=== PATIENT | male | born 1985 | race Caucasian/White ===

== ENCOUNTER 2018-08-20 19:13 | Emergency (ER) | payer OTHER, MEDICAID, SELFPAY ==
[2018-08-20 19:18] VITALS: BP 138/78; PULSE 88; RESP 17; TEMP 36.4; O2SAT 97; BMI 41.2
--- NOTE | 2018-08-20 20:17 | DI.CT.S_ITS ---
PROCEDURE: CT ABDOMEN PELVIS W CON INDICATIONS: LUQ pain getting worse TECHNIQUE: After the administration of intravenous contrast, 5 mm thick sections acquired from the diaphragm to the symphysis. 5 mm coronal and sagittal reformats were acquired. For radiation dose reduction, the following was used: automated exposure control, adjustment of mA and/or kV according to patient size. COMPARISON: None. FINDINGS: Image quality: Excellent. ABDOMEN: Lung bases: Lung bases are clear. Heart size is normal. Solid organs: Liver is normal in size and enhancement. The liver is diffusely prominently fatty infiltrated with several small areas of focal sparing from otherwise diffuse fatty infiltration. Gallbladder is partially contracted. Biliary system is non dilated. Pancreas enhances normally. Spleen is enlarged in size at 14.1 cm craniocaudad and normal in enhancement. No adrenal nodules. Kidneys demonstrate normal size and enhancement, without hydronephrosis. Peritoneum and bowel: Bowel loops demonstrate normal wall thickness and caliber. No free fluid or air. Nodes and vessels: No retroperitoneal or mesenteric adenopathy by size criteria. Aorta and inferior vena cava are normal in size. Miscellaneous: No ventral hernias. PELVIS: Genitourinary: Bladder wall thickness is normal. Miscellaneous: No inguinal hernias or adenopathy. Bones: No suspicious bony lesions. No vertebral body compression fractures. IMPRESSION: Prominent fatty infiltration throughout the liver, mildly heterogeneous. Splenomegaly. No acute disease. No ascites or varices are yet found. Dictated by: Dhruv Trejo M.D. on 08/20/2018 at 21:45 Approved by: Dhruv Trejo M.D. on 08/20/2018 at 21:47
[2018-08-20 20:36] LABS: Add Manual Diff / Slide Review NO; Basophils Absolute Auto 100 /uL (0-100); Basophils Percent Auto 0.7 % (0-2); Eosinophils Absolute Auto 200 /uL (0-450); Eosinophils Percent Auto 2.2 % (2-4); Hematocrit 46.3 % (41-53); Hemoglobin 15.9 g/dL (13.5-17.5); Lymphocytes Absolute Auto 3100 /uL (1100-4500); Lymphocytes Percent Auto 36.5 % (25-40); Mean Corpuscular HGB Conc 34.4 % (30-36); Mean Corpuscular Hemoglobin 29.1 PG (26-34); Mean Corpuscular Volume 84.4 fL (80-100); Monocytes Absolute Auto 500 /uL (0-900); Monocytes Percent Auto 6.4 % (3-14); Neutrophils Absolute Auto 4600 /uL (1500-7000); Neutrophils Percent Auto 54.2 % (50-75); Platelet Count 214 X10^3/uL (150-400); Red Blood Cell Count 5.49 X10^6/uL (4.5-5.9); White Blood Cell Count 8.5 X10^3/uL (4.5-11.0)
[2018-08-20 20:49] LABS: Alanine Aminotransferase 58 IU/L (21-72); Albumin 4.3 g/dL (3.5-5.0); Albumin Globulin Ratio 1.4 (1.0-2.8); Alkaline Phosphatase 60 U/L (38-126); Aspartate Aminotransferase 32 IU/L (17-59); BUN Creatinine Ratio 18.2 (6-22); Bilirubin Total 0.5 mg/dL (0.2-1.3); Blood Urea Nitrogen 20 mg/dL (9-20); Carbon Dioxide 25 mmol/L (22-32); Chloride 104 mmol/L (98-107); Estimated Glomerular Filt Rate > 60.0 mL/min (>60); Glucose 90 mg/dL (70-100); HEMOLYSIS 36 (0-50); Lipase 58 U/L (23-300); Potassium 4.1 mmol/L (3.4-5.1); Sodium 141 mmol/L (137-145); Total Protein 7.3 g/dL (6.3-8.2)
--- NOTE | 2018-08-20 21:53 | ED_ITS ---
HPI - Abdominal Pain General Chief Complaint: Abdominal Pain Stated Complaint: upper left quadrant abdominal pain Time Seen by Provider: 08/20/18 20:01 Source: patient Mode of arrival: ambulatory Limitations: no limitations History of Present Illness HPI narrative: patient is a 32-year-old male who presents with left upper quadrant pain it has been ongoing for the last week and a half. It waxes and wanes. No nausea or vomiting or fever. No diarrhea. It does stay primarily in left upper quadrant is not affected by food. Nonradiating. MD complaint: abdominal pain Location: LUQ Severity: mild Quality: cramping Radiation: none Migration to: no migration Relieving factors: nothing Exacerbating factors: nothing Associated symptoms: denies other symptoms Related Data Previous Rx's Medication Instructions Recorded clotrimazole 1 appl TOPICAL BID PRN #45 gm 09/04/17 Allergies Allergy/AdvReac Type Severity Reaction Status Date / Time No Known Drug Allergies Allergy Verified 08/20/18 19:18 Review of Systems Review of Systems GENERAL: Denies chills, fatigue, malaise, fever, sweats, travel HEENT: Denies sinus pain, ear pain, sore throat, difficulty swallowing, neck pain RESPIRATORY: Denies dyspnea, cough, wheezing, hemoptysis, sputum. CARDIOVASCULAR: Denies chest pain, palpitations, orthopnea, edema GASTROINTESTINAL: see HPI : Denies dysuria, frequency, incontinence, hematuria, urinary retention, flank pain. MUSCULOSKELETAL: Denies weakness, joint pain, or bony pain SKIN: No rash, no erythema, no pruritus NEUROLOGIC: Denies weakness, dizziness, headache, numbness, change in speech, confusion PSYCHIATRIC: No concerning psychosocial issues. 12 point review of systems is negative except for those stated above and HPI PFSH Social History Smoking Status: Current some day smoker Social History Smoking Status: Current some day smoker Exam Initial Vital Signs Initial Vital Signs: Vital Signs Temperature 97.5 F L 08/20/18 19:18 Pulse Rate 88 08/20/18 19:18 Respiratory Rate 17 08/20/18 19:18 Blood Pressure 138/78 08/20/18 19:18 Pulse Oximetry 97 08/20/18 19:18 GENERAL: Well-appearing, well-nourished and in no acute distress. HEENT: Head atraumatic,EOMI, pupils reactive, face symmetric, moist mucous membranes CARDIOVASCULAR: Regular rate and rhythm without murmurs, rubs or gallops. RESPIRATORY: Breath sounds equal bilaterally, no wheezes rales or rhonchi. ABDOMEN: Soft, overweight, mild left upper quadrant pain without guarding or rebound, no lower abdominal pain no right upper quadrant pain : No CVA tenderness EXTREMITIES: Normal range of motion, no clubbing or edema. Neurovascularly intact NEUROLOGICAL: Alert and oriented x4.Normal gait and speech. SKIN: Warm, dry, no laceration, no petechiae, no rashes or lesions. Course Orders Ordered: ED Orders 08/20/18 20:17 CT abdomen pelvis w con Stat 08/20/18 20:30 Complete Blood Count AUTO DIFF Stat Comprehensive Metabolic Panel Stat Lipase Stat Vital Signs - 8 hr 08/20/18 19:18 08/20/18 21:56 Temperature 97.5 F L Pulse Rate 88 72 Respiratory Rate 17 17 Blood Pressure 138/78 Blood Pressure [Left Arm] 104/51 L Pulse Oximetry 97 95 MDM - Abdominal Pain Lab Data Attestation: I reviewed the patient's lab results. Result diagrams: 08/20/18 20:30 08/20/18 20:30 Lab Results 08/20/18 08/20/18 Range/Units 20:30 20:30 WBC 8.5 (4.5-11.0) X10^3/uL RBC 5.49 (4.5-5.9) X10^6/uL Hgb 15.9 (13.5-17.5) g/dL Hct 46.3 (41-53) % MCV 84.4 (80-100) fL MCH 29.1 (26-34) PG MCHC 34.4 (30-36) % RDW 13.0 (11.6-14.8) % Plt Count 214 (150-400) X10^3/uL Neut % (Auto) 54.2 (50-75) % Lymph % (Auto) 36.5 (25-40) % [place] % (Auto) 6.4 (3-14) % Eos % (Auto) 2.2 (2-4) % Baso % (Auto) 0.7 (0-2) % Neut # (Auto) 4600 (1693-9219) /uL Lymph # (Auto) 3100 (4914-0012) /uL [place] # (Auto) 500 (0-900) /uL Eos # (Auto) 200 (0-450) /uL Baso # (Auto) 100 (0-100) /uL Sodium 141 (137-145) mmol/L Potassium 4.1 (3.4-5.1) mmol/L Chloride 104 (98-107) mmol/L Carbon Dioxide 25 (22-32) mmol/L BUN 20 (9-20) mg/dL Creatinine 1.10 (0.66-1.25) mg/dL Estimated GFR > 60.0 (>60) mL/min BUN/Creatinine Ratio 18.2 (6-22) Glucose 90 (70-100) mg/dL Calcium 9.0 (8.4-10.2) mg/dL Total Bilirubin 0.5 (0.2-1.3) mg/dL AST 32 (17-59) IU/L ALT 58 (21-72) IU/L Alkaline Phosphatase 60 (38-126) U/L Total Protein 7.3 (6.3-8.2) g/dL Albumin 4.3 (3.5-5.0) g/dL Globulin 3.0 (1.7-4.1) g/dL Albumin/Globulin Ratio 1.4 (1.0-2.8) Lipase 58 (23-300) U/L Imaging Data CT scan - abdomen: Radiologist's impression: PROCEDURE: CT ABDOMEN PELVIS W CON INDICATIONS: LUQ pain getting worse TECHNIQUE: After the administration of intravenous contrast, 5 mm thick sections acquired from the diaphragm to the symphysis. 5 mm coronal and sagittal reformats were acquired. For radiation dose reduction, the following was used: automated exposure control, adjustment of mA and/or kV according to patient size. COMPARISON: None. FINDINGS: Image quality: Excellent. ABDOMEN: Lung bases: Lung bases are clear. Heart size is normal. Solid organs: Liver is normal in size and enhancement. The liver is diffusely prominently fatty infiltrated with several small areas of focal sparing from otherwise diffuse fatty infiltration. Gallbladder is partially contracted. Biliary system is non dilated. Pancreas enhances normally. Spleen is enlarged in size at 14.1 cm craniocaudad and normal in enhancement. No adrenal nodules. Kidneys demonstrate normal size and enhancement, without hydronephrosis. Peritoneum and bowel: Bowel loops demonstrate normal wall thickness and caliber. No free fluid or air. Nodes and vessels: No retroperitoneal or mesenteric adenopathy by size criteria. Aorta and inferior vena cava are normal in size. Miscellaneous: No ventral hernias. PELVIS: Genitourinary: Bladder wall thickness is normal. Miscellaneous: No inguinal hernias or adenopathy. Bones: No suspicious bony lesions. No vertebral body compression fractures. IMPRESSION: Prominent fatty infiltration throughout the liver, mildly hete rogeneous. Splenomegaly. No acute disease. No ascites or varices are yet found. Dictated by: Dhruv Trejo M.D. on 08/20/2018 at 21:45 MDM Narrative Medical decision making narrative: the patient has chronic ongoing left upper quadrant pain. May be due to gastric ulcers although symptoms are not related to food. At this time no cause of left upper quadrant pain recommend outpatient follow-up. Discharge Plan Departure Patient Disposition: Home Clinical Impression: Abdominal pain Qualifiers: Abdominal location: left upper quadrant Qualified Code(s): R10.12 - Left upper quadrant pain Discharge Date/Time: 08/20/18 22:14 Interventions: ED Discharge Assessment Last Done: 08/20/18 22:14 Activity Restrictions/Additional Instructions: *You have been diagnosed with Left upper quadrant pain *What to do: blood work and CT scan are reassuring. May have a stomach ulcer. You can try taking [id number] omeprazole 20 mg once a day for 2 weeks to see if there is any improvement *Continue to take medications as directed *Follow up with your primary care provider in 2-3 days *Return to ER if you should have increasing pain persistent vomiting or any other new or concerningany new, worsening or concerning symptoms Prescriptions: No Action clotrimazole 1 % cream 1 appl Topical BID PRNQty: 45 RF: 0 Referrals: Brown Watkins DO [Primary Care Provider] -
[2018-08-20 21:56] VITALS: BP 104/51; PULSE 72; RESP 17; O2SAT 95
== END 2018-08-20 22:14 | disposition home or self-care (01) ==
PROVIDERS: Emergency Provider Emergency Medicine; Family Provider Emergency Medicine; PCP Emergency Medicine
DX: R10.9 Unspecified abdominal pain (principal)
CPT/HCPCS: 36415; 36591; 74177; 80053; 83690; 85025; 99282; 99285

== ENCOUNTER 2018-12-20 18:30 | Emergency (ER) | payer OTHER, SELFPAY ==
[2018-12-20 18:45] VITALS: BMI 28.1
[2018-12-20 19:15] VITALS: BP 123/80; PULSE 76; RESP 16; TEMP 36.7; O2SAT 95; BMI 28.1
--- NOTE | 2018-12-20 20:00 | ED_ITS ---
HPI - Extremity Injury (Lower) <Jessica Feliz PA-C - Last Filed: 12/20/18 21:03> General Chief Complaint: Extremity Injury, Lower Stated Complaint: thinks chemical exposure to feet at work Time Seen by Provider: 12/20/18 19:33 Source: patient Mode of arrival: ambulatory Limitations: no limitations History of Present Illness HPI Narrative: This 33-year-old male comes to ED secondary to concern for chemical exposure or infection on his feet. He states that Friday, he had some tar and tack from work go through his shoes on to his socks and had some blistering. He states that he also thought he had athlete's foot because he had some flaking and redness between his toes. He states he had burning pain on the bottom of his feet which is better after using antifungal spray for 5 days, however he has increased redness and pain on the top of his right foot mainly 2nd toe. He denies any drainage, fever, states this area gusman. He denies any other new complaints today. Related Data Previous Rx's Medication Instructions Recorded clotrimazole 1 appl TOPICAL BID PRN #45 gm 09/04/17 cephalexin 500 mg PO Q6H 7 Days #28 cap 12/20/18 Allergies Allergy/AdvReac Type Severity Reaction Status Date / Time No Known Drug Allergies Allergy Verified 12/20/18 18:45 Review of Systems <Jessica Feliz PA-C - Last Filed: 12/20/18 21:03> Review of Systems ROS Unobtainable: All systems reviewed & are unremarkable except as noted in HPI and below PFSH <Jessica Feliz PA-C - Last Filed: 12/20/18 21:03> Medical History (Updated 12/20/18 @ 20:33 by Dawna Luis RN) History of traumatic brain injury (Resolved) Surgical History (Updated 12/20/18 @ 19:55 by Jessica Feliz PA-C) Status post brain surgery (Resolved) Social History Smoking Status: Current some day smoker Social History Smoking Status: Current some day smoker Exam <Jessica Feliz PA-C - Last Filed: 12/20/18 21:03> Narrative Exam Narrative: GENERAL APPEARANCE: Patient sitting comfortably, in no distress. LUNGS: Clear to auscultation bilaterally. HEART: Rate and rhythm regular without murmur, normal S1 and S2, no S3 or S4. EXTREMITIES: No cyanosis, no edema DERMATOLOGIC: No exanthem on the dorsal feet. On the right foot there is some interdigital flaking and small cracks. There is erythema on the right 2nd toe medial dorsal surface, trace edema. There are no vesicles or pustules Initial Vital Signs Initial Vital Signs: Vital Signs Temperature 98.0 F 12/20/18 19:15 Pulse Rate 76 12/20/18 19:15 Respiratory Rate 16 12/20/18 19:15 Blood Pressure 123/80 12/20/18 19:15 Pulse Oximetry 95 12/20/18 19:15 <DO Jony Santos Last Filed: 12/20/18 21:15> Initial Vital Signs Initial Vital Signs: Vital Signs Temperature 98.0 F 12/20/18 19:15 Pulse Rate 76 12/20/18 19:15 Respiratory Rate 16 12/20/18 19:15 Blood Pressure 123/80 12/20/18 19:15 Pulse Oximetry 95 12/20/18 19:15 Course <JUSTICE Bowman Last Filed: 12/20/18 21:03> Additional Information: The patient had pictures of the discoloration on his feet early in the week, this was solely on the plantar surface and resolved now. Advised this that I suspect current infection is secondary to interdigital skin cracking from tinea rather than from that contact dermatitis. Orders Ordered: Discontinued Medications Cefazolin Sodium (Keflex) 1 bottle MISC SEEINSTR ONE Stop: 12/20/18 19:50 Last Admin: 12/20/18 20:04 Dose: 2 tab Vital Signs - 8 hr 12/20/18 19:15 12/20/18 20:15 Temperature 98.0 F 97.7 F Pulse Rate 76 65 Respiratory Rate 16 16 Blood Pressure 123/80 Blood Pressure [Left Arm] 121/68 Pulse Oximetry 95 100 <DO Jony Santos Last Filed: 12/20/18 21:15> Orders Ordered: Discontinued Medications Cefazolin Sodium (Keflex) 1 bottle MISC SEEINSTR ONE Stop: 12/20/18 19:50 Last Admin: 12/20/18 20:04 Dose: 2 tab Vital Signs - 8 hr 12/20/18 19:15 12/20/18 20:15 Temperature 98.0 F 97.7 F Pulse Rate 76 65 Respiratory Rate 16 16 Blood Pressure 123/80 Blood Pressure [Left Arm] 121/68 Pulse Oximetry 95 100 Discharge Plan Departure Patient Disposition: Home Clinical Impression: Cellulitis of toe of right foot, Tinea pedis Qualifiers: Laterality: bilateral Qualified Code(s): B35.3 - Tinea pedis Discharge Date/Time: 12/20/18 20:22 Interventions: ED Discharge Assessment Last Done: 12/20/18 20:22 Instructions: DI for Cellulitis -- Adult, DI for Athlete's Foot Activity Restrictions/Additional Instructions: Please continue your antifungal spray on your feet and between her toes. In addition, add an antifungal powder. Use this on your feet, in between your toes, and in your socks. Go barefoot at night and when you can at home. Start the antibiotic cephalexin, 500 mg 4 times daily (start this tonight with the pills that we gave you and pickers material handlers the rest of your prescription in the morning, I have sent it to [facility] for you. Call your insurance or the [facility] 1st thing in the morning to get a referral to a primary care provider so that you can follow up next week for a recheck and further treatment or referral if needed. Return to the ED in the interim if you have acutely worsening symptoms such as rapidly spreading redness, increased pain or swelling, or new fever as we talked about. Prescriptions: New cephalexin 500 mg capsule 500 mg PO Q6H 7 Days Qty: 28 RF: 0 No Action clotrimazole 1 % cream 1 appl Topical BID PRNQty: 45 RF: 0 <Gabriel Castaneda DO - Last Filed: 12/20/18 21:15> Cosign ED Attending Shari Attestation: I was available for consultation during this patient's emergency department encounter
[2018-12-20] MEDS: cephALEXin 250 MG PREPACK 1 BOTTLE MISC (20:04)
[2018-12-20 20:15] VITALS: BP 121/68; PULSE 65; RESP 16; TEMP 36.5; O2SAT 100
== END 2018-12-20 20:22 | disposition home or self-care (01) ==
PROVIDERS: Emergency Provider Internal Medicine; Family Provider Emergency Medicine; PCP Emergency Medicine
DX: L03.031 Cellulitis of right toe (principal); B35.3 Tinea pedis; Y99.0 Civilian activity done for income or pay
CPT/HCPCS: 99282; 99283

== ENCOUNTER 2020-04-03 20:15 | Emergency (ER) | payer SELFPAY ==
--- NOTE | 2020-04-03 20:22 | ED.LOWEXIN ---
HPI - Extremity Injury (Lower) General Chief Complaint: Wound/Laceration Stated Complaint: GASH ON RIGHT LEG Time Seen by Provider: 04/03/20 20:20 Source: patient Mode of arrival: Ambulatory Limitations: no limitations History of Present Illness HPI Narrative: 34M smoker with history of MRSA presents with a spontaneously draining abscess on his medial left thigh. He states that it started as a painful red bump and then started spontaneously draining a few days ago, he states there may have been some drainage of fluid but he really did look at it. He denies any fever or chills. He denies any obvious source of the potential infection such as cut, scrapes or other obvious break in the skin. MD complaint: other Onset (ago): day(s) Related Data Previous Rx's Medication Instructions Recorded clotrimazole 1 appl TOPICAL BID PRN #45 gm 09/04/17 doxycycline hyclate 100 mg PO BID #20 tab 04/03/20 Allergies Allergy/AdvReac Type Severity Reaction Status Date / Time No Known Drug Allergies Allergy Verified 12/20/18 18:45 Review of Systems Constitutional Constitutional: Denies chills, Denies fatigue, Denies fever(s), Denies frequent falls, Denies lethargy and Denies weakness Eyes Eyes: Denies change in vision, Denies eye discharge, Denies irritation and Denies loss of vision ENT Ears, Nose, Mouth, and Throat: Denies change in voice, Denies dizziness, Denies neck pain, Denies sore throat and Denies throat swelling Cardiovascular Cardiovascular: Denies chest pain, Denies irregular heart rhythm, Denies lightheadedness, Denies palpitations, Denies dyspnea, Denies dyspnea on exertion and Denies orthopnea Respiratory Respiratory: Denies cough, Denies dyspnea, Denies dyspnea on exertion and Denies wheezing Gastrointestinal Gastrointestinal: Denies abdominal pain, Denies change in bowel habits, Denies diarrhea, Denies nausea and Denies vomiting Musculoskeletal Musculoskeletal: Denies neck pain and Denies numbness Integumentary/Breasts Skin/Breast: Denies pruritus, Reports erythema, Denies rash, Reports skin pain, Reports skin swelling and Reports wounds Neurologic Neurologic: Denies behavioral changes, Denies confusion, Denies dizziness, Denies frequent falls, Denies loss of vision, Denies numbness and Denies weakness Psychiatric Psychiatric: Denies anxiety, Denies behavioral changes, Denies confusion, Denies depression, Denies homicidal ideation and Denies suicidal ideation Endocrine Endocrine: Denies fatigue, Denies flushing and Denies palpitations Hematologic/Lymphatic Hematologic/Lymphatic: Denies easy bruising Allergic/Immunologic Allergic/Immunologic: Denies urticaria, Denies throat swelling and Denies wheezing Patient History Medical History History of traumatic brain injury (Resolved) Surgical History Status post brain surgery (Resolved) Social History Smoking Status: Current some day smoker Smoking Status: Current some day smoker alcohol intake frequency: holidays/special occasions only Substance Use Type: does not use Exam Narrative Exam Narrative: GEN: AOx3 and in mild distress EYES: Pupils are equal, round, and reactive to light and accommodation. Extraoccular muscles are intact bilaterally. There is no subconjunctival hemorrhage or exudate. CHEST: Lungs are clear to auscultation bilaterally and free of wheezes, rales, or rhonchi. Heart rate is regular rhythm, there are no murmurs, clicks, rubs, or gallops. There is no chest wall tenderness. ABD: Abdomen is soft and nontender. There is no guarding or rebound. Bowel sounds are normal in all 4 quadrants. There is no mass or organomegaly. EXT: Full painless ROM of all extremities with no loss of sensation or strength. SKIN: 2 x 3 cm erythematous lesion, spontaneously draining left medial thigh, some surrounding erythema consistent with cellulitis. No ongoing induration or fluctuance. Otherwise skin is warm, pink, and dry. No erythema or rash Initial Vital Signs Initial Vital Signs: Vital Signs Temperature 98.6 F 04/03/20 20:23 Pulse Rate 91 H 04/03/20 20:23 Respiratory Rate 18 04/03/20 20:23 Blood Pressure 138/72 04/03/20 20:23 Pulse Oximetry 99 04/03/20 20:23 Course Orders Ordered: Discontinued Medications Doxycycline Hyclate (Vibramycin) 100 mg PO NOW ONE Stop: 04/03/20 20:27 Last Admin: 04/03/20 20:35 Dose: 100 mg Documented by: SOURAV Vital Signs Vital signs: Vital Signs - 8 hr 04/03/20 20:23 Temperature 98.6 F Pulse Rate 91 H Respiratory Rate 18 Blood Pressure 138/72 Pulse Oximetry 99 Discharge Plan Departure Patient Disposition: Home Clinical Impression: Abscess of left leg Discharge Date/Time: 04/03/20 20:44 Instructions: DI for Skin Abscess Activity Restrictions/Additional Instructions: *You have been diagnosed with [spontaneously ruptured left thigh abscess with some surrounding cellulitis] *What to do: *Take medications as directed *Follow up with your primary care provider in 2-3 days, call for an appointment. Let them know you were seen in the Emergency Department and that we ask that you be seen in follow up *Return to ER if you should have any new, worsening or concerning symptoms Prescriptions: New doxycycline hyclate 100 mg tablet 100 mg PO BID Qty: 20 RF: 0 No Action clotrimazole 1 % cream 1 appl Topical BID PRNQty: 45 RF: 0
[2020-04-03 20:23] VITALS: BP 138/72; PULSE 91; RESP 18; TEMP 37; O2SAT 99
[2020-04-03] MEDS: DOXYCYCLINE HYCLATE 100 MG TABLET PO (20:35)
== END 2020-04-03 20:44 | disposition home or self-care (01) ==
PROVIDERS: Emergency Provider Emergency Medicine
DX: L02.416 Cutaneous abscess of left lower limb (principal)
CPT/HCPCS: 99283

== ENCOUNTER 2020-04-12 17:46 | Emergency (ER) | payer OTHER, SELFPAY ==
--- NOTE | 2020-04-12 17:52 | DI.RAD.S_ITS ---
PROCEDURE: XR HUMERUS RT 2V INDICATIONS: repeat imaging r/t increased pain after trauma friday TECHNIQUE: To views of the humerus were acquired. COMPARISON: None. FINDINGS: Bones: No fractures or dislocations. No suspicious bony lesions. Soft tissues: No suspicious soft tissue calcifications. IMPRESSION: No acute fracture. No osseous lesion. If symptoms and/or clinical suspicion for pathology persist, further assessment with repeat, or advanced imaging (e.g., CT, MRI, or bone scan) may be helpful for further assessment. Dictated by: Wan Ferreira M.D. on 04/12/2020 at 18:11 Approved by: Wan Ferreira M.D. on 04/12/2020 at 18:11
[2020-04-12 17:54] VITALS: BP 144/95; PULSE 78; RESP 16; TEMP 36.9; O2SAT 98
[2020-04-12 20:20] VITALS: BP 128/79; PULSE 86; RESP 18; O2SAT 97
--- NOTE | 2020-04-12 20:45 | ED.UPPEXIN ---
HPI - Extremity Injury (Upper) <DELMY Mcintyre-BC - Last Filed: 04/12/20 20:48> General Chief Complaint: Extremity Injury, Upper Stated Complaint: RT ARM ISSUES S/P WORK IJURY Time Seen by Provider: 04/12/20 18:01 Source: patient and family Mode of arrival: Ambulatory Limitations: no limitations History of Present Illness HPI narrative: The patient is a 34-year-old male current smoker with history of work injury presents with a chief complaint of continued right arm pain. He states he had a crush injury over a week ago, when something broke and he was crushed by a heavy box at work. He was seen at [facility], and presents with his today because he still has right arm pain. He had negative x-rays at that time. He denies any numbness or tingling states that his arm is normal strength. He is not taking anything for pain at this point. is requesting repeat images. He has not followed up with primary care provider or [employer] provider. He also received facial sutures a week ago, but states that he is here for his arm. Related Data Previous Rx's Medication Instructions Recorded clotrimazole 1 appl TOPICAL BID PRN #45 gm 09/04/17 doxycycline hyclate 100 mg PO BID #20 tab 04/03/20 Allergies Allergy/AdvReac Type Severity Reaction Status Date / Time No Known Drug Allergies Allergy Verified 12/20/18 18:45 Review of Systems <DELMY Mcintyre-BC - Last Filed: 04/12/20 20:48> Review of Systems Narrative: GENERAL: Denies chills, fatigue, malaise, fever, sweats. HEENT: Denies sinus pain, ear pain, sore throat, difficulty swallowing, dizziness. RESPIRATORY: Denies dyspnea, cough, wheezing, hemoptysis, sputum. CARDIOVASCULAR: Denies chest pain, palpitations, orthopnea, edema, GASTROINTESTINAL: Denies nausea, vomiting, abdominal pain, diarrhea, constipation, melena. : Denies dysuria, frequency, incontinence, hematuria, urinary retention. MUSCULOSKELETAL: See HPI SKIN: Denies rash, skin lesions, or other NEUROLOGIC: Denies weakness, headache, numbness, change in speech, confusion, seizures, incoordination. PSYCHIATRIC: No concerning psychosocial issues. 12 point review of systems is negative except for those stated above Patient History <GABBY Mcintyre - Last Filed: 04/12/20 20:48> Medical History (Updated 04/12/20 @ 20:12 by GABBY Mcintyre) History of traumatic brain injury (Resolved) Surgical History Status post brain surgery (Resolved) Social History Smoking Status: Current some day smoker Smoking Status: Current some day smoker alcohol intake frequency: holidays/special occasions only Substance Use Type: does not use Exam <GABBY Mcintyre - Last Filed: 04/12/20 20:48> Narrative Exam Narrative: GENERAL: This is a well-nourished, well-developed patient, in no acute distress HEAD: Atraumatic. Normocephalic. No temporal or scalp tenderness. EYES: Pupils equal round and reactive. Extraocular motions intact. No scleral icterus. No injection or drainage. ENT: Nose without bleeding, purulent drainage or septal hematoma. Throat without erythema, tonsillar hypertrophy or exudate. Uvula midline. Airway patent. Facial sutures intact over bridge of nose and lip, no extending erythema. NECK: Trachea midline. No JVD or lymphadenopathy. Supple, nontender, no meningeal signs. Cards: Regular rate and rhythm RESPIRATORY: Clear to auscultation. Breath sounds equal bilaterally. No wheezes, rales, or rhonchi. No cough. No increased respiratory effort. No accessory muscle use. GASTROINTESTINAL: Abdomen soft, non-tender, nondistended. No hepato-splenomegaly, or palpable masses. No guarding. EXTREMITIES: Generalized pain to palpation right upper arm. Positive right radial pulse able to fully flex and extend right arm. Soft to palpation, no visible ecchymosis or lacerations. Arm is soft to palpation. Capillary refill less than 2 seconds all fingers right arm. BACK: Nontender without deformity or crepitance. No flank tenderness. NEURO: AOx3. Interactive. Age appropriate. SKIN: See ENT exam see extremity exam Initial Vital Signs Initial Vital Signs: Vital Signs Temperature 98.5 F 04/12/20 17:54 Pulse Rate 78 04/12/20 17:54 Respiratory Rate 16 04/12/20 17:54 Blood Pressure 144/95 H 04/12/20 17:54 Pulse Oximetry 98 04/12/20 17:54 <Gabriel Castaneda DO - Last Filed: 04/12/20 21:39> Initial Vital Signs Initial Vital Signs: Vital Signs Temperature 98.5 F 04/12/20 17:54 Pulse Rate 78 04/12/20 17:54 Respiratory Rate 16 04/12/20 17:54 Blood Pressure 144/95 H 04/12/20 17:54 Pulse Oximetry 98 04/12/20 17:54 Scores <GABBY Mcintyre - Last Filed: 04/12/20 20:48> GCS [place] coma scale eye opening: Spontaneous [place] coma scale verbal response: Orientated [place] coma scale motor response: Obey commands [place] coma scale total score: 15 Course <GABBY Mcintyre - Last Filed: 04/12/20 20:48> Orders Ordered: ED Orders 04/12/20 17:52 XR humerus RT 2V Stat Vital Signs Vital signs: Vital Signs - 8 hr 04/12/20 17:54 04/12/20 20:20 Temperature 98.5 F Pulse Rate 78 86 Respiratory Rate 16 18 Blood Pressure 144/95 H 128/79 Pulse Oximetry 98 97 <Gabriel Castaneda DO - Last Filed: 04/12/20 21:39> Orders Ordered: ED Orders 04/12/20 17:52 XR humerus RT 2V Stat Vital Signs Vital signs: Vital Signs - 8 hr 04/12/20 17:54 04/12/20 20:20 Temperature 98.5 F Pulse Rate 78 86 Respiratory Rate 16 18 Blood Pressure 144/95 H 128/79 Pulse Oximetry 98 97 MDM - Extremity Injury (Upper) <GABBY Mcintyre - Last Filed: 04/12/20 20:48> Imaging Data Extremity x-ray #1: Radiologist's Impression: [facility] [address] [place] [id number] XRay Report Signed Patient: Esau Astorga LMR#: [id number] : 1985Acct:[id number] Age/Sex: 34 / MDate of Service: 04/12/20 Loc: ED Accession Number: [id number] Procedure: XR humerus RT 2V Ordering Provider: Clari Whittaker MD PROCEDURE: XR HUMERUS RT 2V INDICATIONS: repeat imaging r/t increased pain after trauma friday TECHNIQUE: To views of the humerus were acquired. COMPARISON: None. FINDINGS: Bones: No fractures or dislocations. No suspicious bony lesions. Soft tissues: No suspicious soft tissue calcifications. IMPRESSION: No acute fracture. No osseous lesion. If symptoms and/or clinical suspicion for pathology persist, further assessment with repeat, or advanced imaging (e.g., CT, MRI, or bone scan) may be helpful for further assessment. Dictated by: Wan Ferreira M.D. on 04/12/2020 at 18:11 Approved by: Wan Ferreira M.D. on 04/12/2020 at 18:11 [facility] Narrative Medical decision making narrative: The patient is a 34-year-old male who presents with a chief complaint of continued right arm pain 1 week after an injury. He has no signs of compartment syndrome, would also be very late for compartment syndrome at this point. There is neurovascularly intact his x-rays negative. I discussed at length continued rest ice compression elevation, [id number] medications as needed and able, discussed x-ray does not rule out soft tissue injuries. Encouraged follow-up with primary care provider or [employer] provider, discussed at length coming back to the ER for acute concerns such as decreased circulation, loss of pulses in the right hand. Patient has no questions or concerns upon discharge and states understanding of return precautions as well as follow-up care. Discharge Plan Departure Patient Disposition: Home Clinical Impression: Arm pain, right Discharge Date/Time: 04/12/20 20:20 Instructions: How To Perform RICE (Rest, Ice, Compress, Elevate), DI for Arm Pain Activity Restrictions/Additional Instructions: Thank you for trusting us with your care today As I discussed, your x-ray shows no acute fracture. This does not rule out a soft tissue injury such as a ligament or tendon injury. It is important that you follow up with primary care provider, especially if worsening or no improvement. There can be fractures that did not show up on initial x-ray. I suggest current rest ice compression elevation as well as [id number] pain medications as needed and able Please come back to the emergency department for any acute concerns. Please follow-up with [employer] for a follow-up provider. I have also given you contact information to the [facility] human resources benefits specialist, who can help you identify a primary care provider accepting new patients Please come back to the emergency department for any acute concerns such as neurologic concerns, decreased pulses etcetera Prescriptions: No Action clotrimazole 1 % cream 1 appl Topical BID PRNQty: 45 RF: 0 doxycycline hyclate 100 mg tablet 100 mg PO BID Qty: 20 RF: 0 Referrals: [facility] [Outside] <Gabriel Castaneda, DO - Last Filed: 04/12/20 21:39> Cosign ED Attending Cosignature Attestation: Dr Castaneda Co-Sign Statement: I was available for consultation during this patient's emergency department visit. This chart is signed by myself for administrative purposes only. I did not have direct contact with this patient during this visit. They were seen independently by the [facility].
== END 2020-04-12 20:20 | disposition home or self-care (01) ==
PROVIDERS: Emergency Provider Nurse Practitioner Family
DX: M79.601 Pain in right arm (principal); W23.0XXA Caught, crushed, jammed, or pinched between moving objects, initial encounter; Y99.0 Civilian activity done for income or pay
CPT/HCPCS: 73060; 99283

== ENCOUNTER 2020-08-20 20:01 | Emergency (ER) | payer SELFPAY ==
--- NOTE | 2020-08-20 20:04 | ED.UPPEXIN ---
HPI - Extremity Injury (Upper) General Chief Complaint: Extremity Injury, Upper Stated Complaint: right hand injury, punched a wall Time Seen by Provider: 08/20/20 20:02 Source: patient Mode of arrival: Ambulatory Limitations: no limitations History of Present Illness HPI narrative: 34-year-old male nonsmoker with noncontributory medical history presents with a chief complaint of some right knuckle pain after he punched a wall in anger. He denies any numbness, tingling or weakness. He states his tetanus up-to-date. He denies any wrist, elbow or shoulder pain. He is otherwise well and free of complaint. His pain is worse with motion and improves with rest. MD complaint: injury to: right Onset (ago): minute(s) Other injuries: none Handedness: right Place: home Severity: mild Relieving factors: immobilization and rest Exacerbating factors: movement of extremity Context: direct blow Associated symptoms: denies other symptoms Related Data Previous Rx's Medication Instructions Recorded clotrimazole 1 appl TOPICAL BID PRN #45 gm 09/04/17 doxycycline hyclate 100 mg PO BID #20 tab 04/03/20 Allergies Allergy/AdvReac Type Severity Reaction Status Date / Time No Known Drug Allergies Allergy Verified 12/20/18 18:45 Review of Systems Constitutional Constitutional: Denies chills, Denies fatigue, Denies fever(s), Denies frequent falls, Denies lethargy and Denies weakness Eyes Eyes: Denies change in vision, Denies eye discharge, Denies irritation and Denies loss of vision ENT Ears, Nose, Mouth, and Throat: Denies change in voice, Denies dizziness, Denies neck pain, Denies sore throat and Denies throat swelling Cardiovascular Cardiovascular: Denies chest pain, Denies irregular heart rhythm, Denies lightheadedness, Denies palpitations, Denies dyspnea, Denies dyspnea on exertion and Denies orthopnea Respiratory Respiratory: Denies cough, Denies dyspnea, Denies dyspnea on exertion and Denies wheezing Gastrointestinal Gastrointestinal: Denies abdominal pain, Denies change in bowel habits, Denies diarrhea, Denies nausea and Denies vomiting Musculoskeletal Musculoskeletal: Reports joint swelling, Denies neck pain and Denies numbness Integumentary/Breasts Skin/Breast: Denies pruritus, Denies erythema, Denies rash and Reports wounds Neurologic Neurologic: Denies behavioral changes, Denies confusion, Denies dizziness, Denies frequent falls, Denies loss of vision, Denies numbness and Denies weakness Psychiatric Psychiatric: Denies anxiety, Denies behavioral changes, Denies confusion, Denies depression, Denies homicidal ideation and Denies suicidal ideation Endocrine Endocrine: Denies fatigue, Denies flushing and Denies palpitations Hematologic/Lymphatic Hematologic/Lymphatic: Denies easy bruising Allergic/Immunologic Allergic/Immunologic: Denies urticaria, Denies throat swelling and Denies wheezing Patient History Medical History History of traumatic brain injury Surgical History Status post brain surgery Social History Smoking Status: Current some day smoker Smoking Status: Current some day smoker alcohol intake frequency: holidays/special occasions only Substance Use Type: does not use Exam Narrative Exam Narrative: GEN: AOx3 and in mild distress EYES: Pupils are equal, round, and reactive to light and accommodation. Extraoccular muscles are intact bilaterally. There is no subconjunctival hemorrhage or exudate. CHEST: Lungs are clear to auscultation bilaterally and free of wheezes, rales, or rhonchi. Heart rate is regular rhythm, there are no murmurs, clicks, rubs, or gallops. There is no chest wall tenderness. ABD: Abdomen is soft and nontender. There is no guarding or rebound. Bowel sounds are normal in all 4 quadrants. There is no mass or organomegaly. EXT: Full ROM of R hand, with minimal pain. Able to make a fist. Close, isolated, NV intact. Superficial abrasion on dorsal surface of 2nd R MCP. SKIN: Warm, pink, and dry. No erythema or rash Initial Vital Signs Initial Vital Signs: Vital Signs Temperature 98.7 F 08/20/20 20:07 Pulse Rate 109 H 08/20/20 20:07 Respiratory Rate 20 08/20/20 20:07 Blood Pressure 160/101 H 08/20/20 20:07 Pulse Oximetry 100 08/20/20 20:07 Course Orders Ordered: ED Orders 08/20/20 20:04 XR hand RT min 3V Stat Vital Signs Vital signs: Vital Signs - 8 hr 02/07/21 20:07 Temperature 98.7 F Pulse Rate 109 H Respiratory Rate 20 Blood Pressure 160/101 H Pulse Oximetry 100 MDM - Extremity Injury (Upper) Imaging Data Extremity x-ray #1: Radiologist's Impression: [address] [id number] ReportSigned Patient: Esau Astorga LMR#: [id number]: 1985Acct:[id number]/Sex: 34 / MDate of Service: 08/20/20Loc: EDAccession Number: [id number] Procedure: XR hand RT min 3V Ordering Provider: Rogelio Tabor D.O. PROCEDURE: XR HAND RT MIN 3V INDICATIONS: pain, punched wall TECHNIQUE: 3 views of the hand(s) acquired. COMPARISON: None. FINDINGS: Bones: No fractures or dislocations. Carpal bones are normally aligned. No suspicious bony lesions. Soft tissues: No suspicious soft tissue calcifications. IMPRESSION: No definite fracture found. Dictated by: Dhruv Trejo M.D. on 08/20/2020 at 20:27 Approved by: Dhruv Trejo M.D. on 08/20/2020 at 20:27 Discharge Plan Departure Patient Disposition: Home Clinical Impression: Contusion of hand Qualifiers: Encounter type: initial encounter Laterality: right Qualified Code(s): S60.221A - Contusion of right hand, initial encounter Instructions: DI for Contusion Activity Restrictions/Additional Instructions: *You have been diagnosed with [hand contusion with very minor abrasion. X-ray is very reassuring, no fracture or dislocation noted] *What to do: *Take medications as directed: Tylenol or Motrin for pain *Follow up with your primary care provider in 2-3 days, call for an appointment. Let them know you were seen in the Emergency Department and that we ask that you be seen in follow up *Return to ER if you should have any new, worsening or concerning symptoms Prescriptions: No Action clotrimazole 1 % cream 1 appl Topical BID PRNQty: 45 RF: 0 doxycycline hyclate 100 mg tablet 100 mg PO BID Qty: 20 RF: 0
[2020-08-20 20:07] VITALS: BP 160/101; PULSE 109; RESP 20; TEMP 37.1; O2SAT 100
== END 2020-08-20 20:39 | disposition home or self-care (01) ==
PROVIDERS: Emergency Provider Emergency Medicine
DX: S60.221A Contusion of right hand, initial encounter (principal); W22.8XXA Striking against or struck by other objects, initial encounter
CPT/HCPCS: 73130; 99283